=== PATIENT | female | born 1970 | race Caucasian/White ===

== ENCOUNTER → 2018-01-27 07:26 | Outpatient (CLI) | payer OTHER, SELFPAY ==
--- NOTE | 2018-01-27 06:58 | BI_ITS ---
MAMMOGRAPHY - BILATERAL SCREENING REASON FOR EXAM: Female, 47 years old. Routine annual screening examination. PERTINENT HISTORY: Aunt with breast cancer. TECHNIQUE: Digital bilateral breast ana (3D mammographic acquisition) in the CC and MLO projections. 2-D mediolateral oblique (MLO) and craniocaudad (CC) views of both breasts were obtained. CAD: Full Field Digital Mammography with Computer Added Detection was performed. COMPARISON: Comparison is made with prior study dated January 14, 2017 and January 09, 2016. FINDINGS: Breast Composition: The breasts are heterogeneously dense, which may obscure small masses. There are no dominant masses or suspicious calcifications. There is a 4 mm x 4.1 mm well-defined nodular density in the inferior anterior midportion of the breast at the 6:00 position. This may represent either a small cyst or small lymph node. Correlation with ultrasound is recommended. Stable benign-appearing bilateral axillary lymph nodes. No other significant abnormalities are identified. There has been no significant change since the prior study. BI/SCREENING MAMM (CAD), BILAT IMPRESSION: 4 mm x 4.1 mm well-defined nodule in the left breast as described. Correlation with ultrasound is recommended. ASSESSMENT CATEGORY: BIRADS Category 0: Incomplete. Need additional imaging evaluation. A letter regarding these results will be sent to the patient by the facility within 30 days. Approximately 10% of breast cancers are not detected by mammography. A normal mammogram should not delay biopsy of a clinically suspicious abnormality. [id number] Electronically Signed: Abhinav Herrera MD at 9:01 EDT Tel [phone], Service support ,
--- NOTE | 2018-01-31 12:25 | US_ITS ---
STUDY: ULTRASOUND BREAST - left REASON FOR EXAM: Female, 47 years old. Nodule TECHNIQUE: Axial and longitudinal images of the left breast were performed with a high resolution ultrasound transducer. COMPARISON: Mammogram from 01/27/2018 FINDINGS: Breast: Ultrasound evaluation of the left breast, in the area of concern, shows a 0.4 x 0.4 x 0.3 cm hypoechoic well-defined nodule corresponding with the abnormality on mammogram. There is no suspicious shadowing lesion, architectural distortion or clustered calcification. There are dilated retroareolar ducts. US/Breast Limited Unilateral IMPRESSION: No suspicious sonographic findings, nonshadowing 4 mm nodule noted in the area of concern. ASSESSMENT CATEGORY: BIRADS Category 2: Benign. A letter regarding these results will be sent to the patient by the facility within 30 days. Electronically Signed: Ej Pinedo MD at 11:35 EDT , Service support ,
== END ==
PROVIDERS: Family Provider Student in an Organized Health Care Education/Training Program; PCP Student in an Organized Health Care Education/Training Program; Visit Provider Obstetrics & Gynecology
DX: Z12.31 Encounter for screening mammogram for malignant neoplasm of breast (principal)
CPT/HCPCS: 77063; 77067

== ENCOUNTER → 2018-01-31 12:22 | Outpatient (CLI) | payer OTHER, SELFPAY | PROVIDERS: Family Provider Student in an Organized Health Care Education/Training Program; PCP Student in an Organized Health Care Education/Training Program; Visit Provider Obstetrics & Gynecology | DX: R92.2 Inconclusive mammogram (principal) | CPT/HCPCS: 76642 ==

== ENCOUNTER 2018-03-04 13:39 | Emergency (ER) | payer OTHER, SELFPAY ==
[2018-03-04 13:40] VITALS: BP 140/78; PULSE 66; RESP 16; TEMP 37.2; BMI 23.5
--- NOTE | 2018-03-04 14:05 | ED.VISSUMM ---
- ER Visit Summary Date of Service: 03/04/18 Chief Complaint: Right-sided headache with nausea and vomiting History of Present Illness: The patient is a 47 F history of prior headaches. She said she had was fitted for a mouth guard and it made her headaches better she has not had as many headaches recently. States when she gets on the right-sided behind her right eye. They are not thunderclap. She is on no blood thinners. She denies any sinus congestion. She denies any fever. She denies any head trauma. She denies any neurological symptoms. She is on no blood thinners. There is no family history of intracranial bleeds or brain aneurysms. No else at home currently is having headaches. She denies neck stiffness. Physical Examination: Well-appearing middle-age female. Vital signs are stable afebrile. She does not look septic or toxic. HEENT exam pupils round reactive light. Extra motions are intact. No frontal or maxillary sinus tenderness. Moist mucous membranes. No signs of trauma to her face or head. Neck nontender. No meningismus. Able to easily flex her chin and touch her chin to chest. No lymphadenopathy. Lungs good auscultation bilaterally. Heart regular rhythm no murmur. Chest wall nontender. Abdomen soft nontender. She is moving all 4 extremities. They are neurovascularly intact. Skin no rashes. Back exam normal. Neurologically she is awake alert with no focal motor or sensory deficits. NIH score of 0. Normal speech. No facial droop. 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 Bilateral dorsi plantar flexion. Fingertip to nose and heel to wilkes all within normal limits. She has a completely normal neurologic exam. Test Results: CT of the patient's brain shows no acute abnormality. Read by the radiologist as normal and reviewed by me. Emergency Department Course and Treatment: Likely this sounds to me to be migraine headaches. She has never been officially diagnosed with those. She will be treated with IV fluids, IV Toradol, IV Phenergan and Benadryl. Repeat exam of the patient at 1502 she is doing well. Headache is resolving. Neurologic exam is unchanged and remains normal. Treatment Plan: Discharged home. Prescription for Imitrex as needed. Disposition: Discharge Impression: Acute headache secondary to a migraine Nausea and vomiting This note was generated with [employer] software. It may contain incorrect words, spelling, and punctuation that were not noted in review of the chart prior to signing ED Disposition - Plan for ED Patient: Chief Complaint: Headache Referrals: Marcelino Steinberg DO [Primary Care Provider] -
--- NOTE | 2018-03-04 14:08 | ED.DCSUM_ITS ---
- ER Visit Summary Date of Service: 03/04/18 Chief Complaint: Right-sided headache with nausea and vomiting History of Present Illness: The patient is a 47 F history of prior headaches. She said she had was fitted for a mouth guard and it made her headaches better she has not had as many headaches recently. States when she gets on the right- sided behind her right eye. They are not thunderclap. She is on no blood thinners. She denies any sinus congestion. She denies any fever. She denies any head trauma. She denies any neurological symptoms. She is on no blood thinners. There is no family history of intracranial bleeds or brain aneurysms. No else at home currently is having headaches. She denies neck stiffness. Physical Examination: Well-appearing middle-age female. Vital signs are stable afebrile. She does not look septic or toxic. HEENT exam pupils round reactive light. Extra motions are intact. No frontal or maxillary sinus tenderness. Moist mucous membranes. No signs of trauma to her face or head. Neck nontender. No meningismus. Able to easily flex her chin and touch her chin to chest. No lymphadenopathy. Lungs good auscultation bilaterally. Heart regular rhythm no murmur. Chest wall nontender. Abdomen soft nontender. She is moving all 4 extremities. They are neurovascularly intact. Skin no rashes. Back exam normal. Neurologically she is awake alert with no focal motor or sensory deficits. NIH score of 0. Normal speech. No facial droop. Bilateral 5 out of 5 patient care assistant strength. Bilateral dorsi plantar flexion. Fingertip to nose and heel to wilkes all within normal limits. She has a completely normal neurologic exam. Test Results: CT of the patient's brain shows no acute abnormality. Read by the radiologist as normal and reviewed by me. Emergency Department Course and Treatment: Likely this sounds to me to be migraine headaches. She has never been officially diagnosed with those. She will be treated with IV fluids, IV Toradol, IV Phenergan and Benadryl. Repeat exam of the patient at 1502 she is doing well. Headache is resolving. Neurologic exam is unchanged and remains normal. Treatment Plan: Discharged home. Prescription for Imitrex as needed. Disposition: Discharge Impression: Acute headache secondary to a migraine Nausea and vomiting This note was generated with [employer] software. It may contain incorrect words, spelling, and punctuation that were not noted in review of the chart prior to signing ED Disposition - Plan for ED Patient: Chief Complaint: Headache Referrals: Marcelino Steinberg DO [Primary Care Provider] -
[2018-03-04] MEDS: 0.9% Normal Saline 1,000 ML 1000 ML IV (14:15)
[2018-03-04] MEDS: Ketorolac 30 MG/ML Syringe IV (14:15)
[2018-03-04] MEDS: proMETHazine 25 MG/ML Syringe 12.5 MG IV (14:15)
[2018-03-04] MEDS: DiphenhydrAMINE 50 MG/ML Syringe IV (14:15)
--- NOTE | 2018-03-04 15:04 | ED.DEP ---
ED Disposition - Plan for ED Patient: Disposition: Home or Assisted Living Chief Complaint: Headache Instructions: ED Headache Migraine Prescriptions: Sumatriptan Succinate [Imitrex] 25 mg PO .X1 PRN #10 tab Referrals: Marcelino Steinberg DO [Primary Care Provider] - As Needed Additional Instructions: Follow-up with her doctor as needed. Your headaches are consistent clinically with migraine headaches. I wrote a prescription for a medication called Imitrex try that the next time you have a similar headache.
[2018-03-04 15:36] VITALS: BP 114/71; PULSE 87; RESP 14; O2SAT 100
== END 2018-03-04 15:37 | disposition home or self-care (01) ==
PROVIDERS: Emergency Provider Emergency Medicine; Family Provider Student in an Organized Health Care Education/Training Program; PCP Student in an Organized Health Care Education/Training Program
DX: G43.909 Migraine, unspecified, not intractable, without status migrainosus (principal)
CPT/HCPCS: 70450; 96361; 96374; 96375; 99283; J7030; A4216

== ENCOUNTER → 2019-02-09 12:38 | Outpatient (CLI) | payer OTHER, SELFPAY ==
--- NOTE | 2019-02-09 12:42 | BI_ITS ---
MAMMOGRAPHY - BILATERAL SCREENING REASON FOR EXAM: Female, 48 years old. Routine annual screening examination. PERTINENT HISTORY: Aunt with breast cancer. TECHNIQUE: Digital bilateral breast alber (3D mammographic acquisition) in the CC and MLO projections. 2-D mediolateral oblique (MLO) and craniocaudad (CC) views of both breasts were obtained. CAD: Full Field Digital Mammography with Computer Added Detection was performed. COMPARISON: Comparison is made with prior study dated January 27, 2018 and January 14, 2017. FINDINGS: Breast Composition: The breasts are heterogeneously dense, which may obscure small masses. There is a 2.1 cm x 1.5 cm well-defined nodule in the lateral retroareolar region of the right breast. There is also evidence of a 8.4 mm well-defined nodule in the superior lateral portion of the right breast. Correlation with ultrasound is recommended. No other significant abnormalities are identified. BI/SCREEN MAMM (CAD) W/ALBER BILAT IMPRESSION: 2 nodular densities seen in the right breast as described. Correlation with ultrasound is recommended. ASSESSMENT CATEGORY: BIRADS Category 0: Incomplete. Need additional imaging evaluation. A letter regarding these results will be sent to the patient by the facility within 30 days. Approximately 10% of breast cancers are not detected by mammography. A normal mammogram should not delay biopsy of a clinically suspicious abnormality. [id number] Electronically Signed: Abhinav Herrera, at 14:18 EDT , Service support ,
== END ==
PROVIDERS: Family Provider Student in an Organized Health Care Education/Training Program; PCP Student in an Organized Health Care Education/Training Program; Referring Provider Obstetrics & Gynecology; Visit Provider Obstetrics & Gynecology
DX: Z12.31 Encounter for screening mammogram for malignant neoplasm of breast (principal); Z80.3 Family history of malignant neoplasm of breast
CPT/HCPCS: 77063; 77067

== ENCOUNTER → 2019-02-27 12:53 | Outpatient (CLI) | payer OTHER, SELFPAY ==
--- NOTE | 2019-02-27 12:58 | US_ITS ---
STUDY: ULTRASOUND BREAST - RIGHT REASON FOR EXAM: Female, 48 years old. Persistent mammographic densities TECHNIQUE: Axial and longitudinal images of the RIGHT breast were performed with a high resolution ultrasound transducer. COMPARISON: 02/09/2019. FINDINGS: RIGHT Breast: Sonogram of the right breast along upper outer quadrant demonstrates multiple foci of cysts, and the largest focus is visualized along the 9:00 axis, 4 cm from nipple measuring 1.3 x 1.9 x 0.9 cm with anechoic echotexture. The second largest is along 12:00 axis, 3 cm from nipple measuring 0.7 x 0.7 x 0.6 cm. These correspond to the densities visualized on the mammogram. US/Breast Limited Unilateral IMPRESSION: 2 nodular densities on the mammogram corresponds to 2 benign cysts as described above. ASSESSMENT CATEGORY: BIRADS Category 2: Benign. A letter regarding these results will be sent to the patient by the facility within 30 days. Patient to return to annual screening mammogram in February 2020. Electronically Signed: Sedrick East MD at 8:30 EDT Tel [phone], Service support ,
== END ==
PROVIDERS: Family Provider Student in an Organized Health Care Education/Training Program; PCP Student in an Organized Health Care Education/Training Program; Referring Provider Obstetrics & Gynecology; Visit Provider Obstetrics & Gynecology
DX: R92.2 Inconclusive mammogram (principal)
CPT/HCPCS: 76642

== ENCOUNTER → 2020-04-23 07:32 | Outpatient (CLI) | payer OTHER, SELFPAY ==
--- NOTE | 2020-04-23 07:35 | BI_ITS ---
MAMMOGRAPHY - BILATERAL SCREENING REASON FOR EXAM: Female, 49 years old. Routine annual screening examination. PERTINENT HISTORY: Aunt with breast cancer. TECHNIQUE: Digital bilateral breast alber (3D mammographic acquisition) in the CC and MLO projections. 2-D mediolateral oblique (MLO) and craniocaudad (CC) views of both breasts were obtained. CAD: Full Field Digital Mammography with Computer Added Detection was performed. COMPARISON: Comparison is made with prior examination dated 02/09/2019 and 01/27/2018. FINDINGS: Breast Composition: The breasts are heterogeneously dense, which may obscure small masses. There is a 2.4 cm x 1.4 cm well-defined nodule in the lateral retroareolar region of the right breast. This has increased slightly in size as compared to prior study. Prior sonogram demonstrated these to be cysts. The previously seen 7 mm nodule is not seen at this time in the upper lateral portion of the right breast. Stable benign-appearing bilateral axillary lymph nodes. No other significant abnormalities are identified. BI/SCREEN MAMM (CAD) W/ALBER BILAT IMPRESSION: Mild increased size of the retroareolar nodule in the right breast as described. This was previously demonstrated to be a cyst. Yearly follow-up mammogram recommended. (A) ASSESSMENT CATEGORY: BIRADS Category 2: Benign. A letter regarding these results will be sent to the patient by the facility within 30 days. Approximately 10% of breast cancers are not detected by mammography. A normal mammogram should not delay biopsy of a clinically suspicious abnormality. [id number] Electronically Signed: Abhinav Herrera, at 10:07 EDT , Service support ,
== END ==
PROVIDERS: PCP Student in an Organized Health Care Education/Training Program; Referring Provider Student in an Organized Health Care Education/Training Program; Visit Provider Student in an Organized Health Care Education/Training Program
DX: Z12.31 Encounter for screening mammogram for malignant neoplasm of breast (principal); Z80.3 Family history of malignant neoplasm of breast
CPT/HCPCS: 77063; 77067

== ENCOUNTER → 2021-04-24 09:52 | Outpatient (CLI) | payer OTHER, SELFPAY ==
--- NOTE | 2021-04-24 09:59 | BI_ITS ---
MAMMOGRAPHY - BILATERAL SCREENING REASON FOR EXAM: Female, 50 years old. Routine annual screening examination. PERTINENT HISTORY: Aunt with breast cancer. TECHNIQUE: Digital bilateral breast alber (3D mammographic acquisition) in the CC and MLO projections. 2-D mediolateral oblique (MLO) and craniocaudad (CC) views of both breasts were obtained. CAD: Full Field Digital Mammography with Computer Added Detection was performed. COMPARISON: Comparison is made with prior examination dated 04/23/2020 and 02/09/2019. FINDINGS: Breast Composition: The breasts are heterogeneously dense, which may obscure small masses. There are 3 adjacent nodular densities in the anterior central upper lateral aspect of the right breast suggestive of a cysts. There is also evidence of a 1.5 cm x 1.5 cm well-defined nodule in the central lateral aspect of the left breast. These most likely represent cysts. Correlation with ultrasound of both breasts is recommended for further evaluation. No other significant abnormalities are identified. BI/SCRN MAMM (CAD)W/ALBER BILAT IMPRESSION: Increase in size and number of the bilateral breast nodules as described. Follow-up with ultrasound is recommended. ASSESSMENT CATEGORY: BIRADS Category 0: Incomplete. Need additional imaging evaluation. A letter regarding these results will be sent to the patient by the facility within 30 days. Approximately 10% of breast cancers are not detected by mammography. A normal mammogram should not delay biopsy of a clinically suspicious abnormality. [id number] Electronically Signed: Abhinav Herrera MD at 11:04 EDT , Service support ,
== END ==
PROVIDERS: PCP Student in an Organized Health Care Education/Training Program; Referring Provider Student in an Organized Health Care Education/Training Program; Visit Provider Student in an Organized Health Care Education/Training Program
DX: Z12.31 Encounter for screening mammogram for malignant neoplasm of breast (principal)
CPT/HCPCS: 77063; 77067

== ENCOUNTER → 2021-05-06 13:26 | Outpatient (CLI) | payer OTHER, SELFPAY ==
--- NOTE | 2021-05-06 13:28 | US_ITS ---
STUDY: ULTRASOUND BREAST - RIGHT (accession [id number]), LEFT (accession [id number]) REASON FOR EXAM: Female, 50 years old. Abnormal screening mammogram. TECHNIQUE: Axial and longitudinal images of the RIGHT (accession [id number]), LEFT (accession [id number]) breast were performed with a high resolution ultrasound transducer. # OF IMAGES: 38 COMPARISON: Comparison is made with prior mammogram dated 04/24/2021 and prior ultrasound of the right breast dated 02/27/2019. FINDINGS: Left (accession [id number]), LEFT (accession [id number]) Breast: The retroareolar region of the left breast was examined by ultrasound. 2. Cysts in the retroareolar region. The larger measures 1.6 x 1.7 cm x 0.8 cm. IMPRESSION: 2 cysts are seen in the retroareolar region of the left breast. ASSESSMENT CATEGORY: BIRADS Category 2: Benign. A letter regarding these results will be sent to the patient by the facility within 30 days. Electronically Signed: Abhinav Herrera MD at 14:56 EDT , Service support , STUDY: ULTRASOUND BREAST - RIGHT (accession [id number]), LEFT (accession [id number]) REASON FOR EXAM: Female, 50 years old. Abnormal screening mammogram. TECHNIQUE: Axial and longitudinal images of the RIGHT (accession [id number]), LEFT (accession [id number]) breast were performed with a high resolution ultrasound transducer. # OF IMAGES: 38 COMPARISON: Comparison is made with prior mammogram dated 04/24/2021 and prior ultrasound of the right breast dated 02/27/2019. FINDINGS: Left (accession [id number]), LEFT (accession [id number]) Breast: The retroareolar region of the left breast was examined by ultrasound. 2. Cysts in the retroareolar region. The larger measures 1.6 x 1.7 cm x 0.8 cm. US/Breast Limited Unilateral
== END ==
PROVIDERS: PCP Student in an Organized Health Care Education/Training Program; Referring Provider Student in an Organized Health Care Education/Training Program; Visit Provider Student in an Organized Health Care Education/Training Program
DX: R92.2 Inconclusive mammogram (principal); N63.42 Unspecified lump in left breast, subareolar
CPT/HCPCS: 76642

== ENCOUNTER → 2022-04-27 | Outpatient (CLI) | payer BC, SELFPAY ==
--- NOTE | 2022-04-27 08:07 | BI_ITS ---
MAMMOGRAPHY - BILATERAL SCREENING REASON FOR EXAM: Female, 51 years old. Routine annual screening examination. PERTINENT HISTORY: Aunt with breast cancer. History of prior bilateral breast cysts. TECHNIQUE: Digital bilateral breast alber (3D mammographic acquisition) in the CC and MLO projections. 2-D mediolateral oblique (MLO) and craniocaudad (CC) views of both breasts were obtained. CAD: Full Field Digital Mammography with Computer Added Detection was performed. COMPARISON: Comparison is made with prior study dated 04/24/2021 and 04/23/2020. FINDINGS: Breast Composition: The breasts are heterogeneously dense, which may obscure small masses. The previously seen nodules in the right breast of decreased in size. The largest nodule presently measures 1.5 cm x 1.3 cm. Stable 1.5 cm well-defined nodule in the central lateral aspect of the left breast. No other significant abnormalities are identified. BI/SCRN MAMM (CAD)W/ALBER BILAT IMPRESSION: Interval decrease in size of the well-defined left breast nodules. Yearly follow-up mammogram recommended. (A) ASSESSMENT CATEGORY: BIRADS Category 2: Benign. A letter regarding these results will be sent to the patient by the facility within 30 days. Approximately 10% of breast cancers are not detected by mammography. A normal mammogram should not delay biopsy of a clinically suspicious abnormality. [id number] Electronically Signed: Abhinav Herrera MD at 9:26 EDT ,
== END | disposition home or self-care (01) ==
LOC: OPBI 08:05
PROVIDERS: PCP Student in an Organized Health Care Education/Training Program; Visit Provider Student in an Organized Health Care Education/Training Program
DX: Z12.31 Encounter for screening mammogram for malignant neoplasm of breast (principal); Z80.3 Family history of malignant neoplasm of breast
CPT/HCPCS: 77063; 77067

== ENCOUNTER → 2023-04-28 | Outpatient (CLI) | payer BC, SELFPAY ==
--- NOTE | 2023-04-28 12:58 | BI_ITS ---
MAMMOGRAPHY - BILATERAL SCREENING REASON FOR EXAM: Female, 52 years old. Routine annual screening examination. PERTINENT HISTORY: Aunt with breast cancer. TECHNIQUE: Digital bilateral breast alber (3D mammographic acquisition) in the CC and MLO projections. 2-D mediolateral oblique (MLO) and craniocaudad (CC) views of both breasts were obtained. CAD: Full Field Digital Mammography with Computer Added Detection was performed. COMPARISON: Comparison is made with prior study April 27, 2022 and April 24, 2021. FINDINGS: Breast Composition: The breasts are heterogeneously dense, which may obscure small masses. Bilateral well-defined nodules are seen. The largest nodule in the left breast measures 2.5 size by 2.1 cm. This is located in the central slightly lateral aspect of the breast. This has increased in size as compared to prior study. No other significant abnormalities are identified. BI/SCRN MAMM (CAD)W/ALBER BILAT IMPRESSION: Bilateral well-defined nodules more prominent in the right breast. Correlation with ultrasound is recommended for further evaluation. ASSESSMENT CATEGORY: BIRADS Category 0: Incomplete. Need additional imaging evaluation. A letter regarding these results will be sent to the patient by the facility within 30 days. Approximately 10% of breast cancers are not detected by mammography. A normal mammogram should not delay biopsy of a clinically suspicious abnormality. [id number] Electronically Signed: Abhinav Herrera MD at 14:25 EDT ,
== END | disposition home or self-care (01) ==
PROVIDERS: PCP Student in an Organized Health Care Education/Training Program; Referring Provider Student in an Organized Health Care Education/Training Program
DX: Z12.31 Encounter for screening mammogram for malignant neoplasm of breast (principal); Z80.3 Family history of malignant neoplasm of breast
CPT/HCPCS: 77063; 77067

== ENCOUNTER → 2023-05-06 | Outpatient (CLI) | payer BC, SELFPAY ==
--- NOTE | 2023-05-06 08:33 | US_ITS ---
STUDY: ULTRASOUND BREAST - BILATERAL REASON FOR EXAM: Female, 52 years old. Abnormal screening mammogram. TECHNIQUE: Axial and longitudinal images of the BILATERAL breast were performed with a high resolution ultrasound transducer. # OF IMAGES: 124 COMPARISON: Comparison is made with prior mammogram dated April 28, 2023. FINDINGS: BILATERAL Breast: The entire right breast was examined with ultrasound. Once again, there are multiple bilateral cysts. The largest cyst is at the 12:00 position breast ultrasound from nipple. This measures 1.5 cm x 1 cm by 1.5 cm. The entire left breast was examined with ultrasound. Once again, multiple cysts are seen. The largest cyst in the left breast is at the 3:00 position of the breast at 2 cm from the nipple. The cyst measures 2.3 cm x 2.6 cm x 1.1 cm. US/Breast Complete Bilateral IMPRESSION: Multiple bilateral cysts as described. ASSESSMENT CATEGORY: BIRADS Category 2: Benign. A letter regarding these results will be sent to the patient by the facility within 30 days. Electronically Signed: Abhinav Herrera MD at 15:00 EDT ,
== END | disposition home or self-care (01) ==
PROVIDERS: PCP Student in an Organized Health Care Education/Training Program; Referring Provider Student in an Organized Health Care Education/Training Program; Visit Provider Student in an Organized Health Care Education/Training Program
DX: R92.8 Other abnormal and inconclusive findings on diagnostic imaging of breast (principal)
CPT/HCPCS: 76641

== ENCOUNTER → 2025-03-20 | Outpatient (CLI) | payer BC, SELFPAY ==
--- NOTE | 2025-03-20 14:25 | BI_ITS ---
EXAM: SCRN MAMM (CAD)W/ALBER BILAT DATE: 03/20/2025 CLINICAL HISTORY: F, Age 54 y/o , SCREENING Maternal aunt. History of prior bilateral ultrasounds demonstrating cysts. TECHNIQUE: Procedure Code: [id number] Modality: MG Procedure: SCRN MAMM (CAD)W/ALBER BILAT COMPARISON: Prior exam(s) dated March 30, 2024.. FINDINGS: TISSUE DENSITY: The breasts are heterogeneously dense, which may obscure small masses. Bilateral Breast Mammographic Findings: There is a 3 cm x 2.5 cm well-defined nodule in the central lateral aspect of the left breast. A nodule measuring 1 cm seen adjacent to this. There is also evidence of a 1 cm well-defined nodule in the central upper lateral aspect of the right breast. Correlation with ultrasound recommended. Stable bilateral fat containing axillary lymph nodes. BI/SCRN MAMM (CAD)W/ALBER BILAT IMPRESSION: Bilateral breast nodules as described. OVERALL FINAL ASSESSMENT BI-RADS 0: INCOMPLETE - NEED ADDITIONAL IMAGING EVALUATION. RECOMMENDATION: Ultrasound Recommended A letter with findings and recommendations will be mailed to the patient. Reading Location: [id number]
== END | disposition home or self-care (01) ==
LOC: OPBI 14:23
PROVIDERS: PCP Student in an Organized Health Care Education/Training Program; Referring Provider Student in an Organized Health Care Education/Training Program; Visit Provider Student in an Organized Health Care Education/Training Program
DX: Z12.31 Encounter for screening mammogram for malignant neoplasm of breast (principal)
CPT/HCPCS: 77063; 77067

== ENCOUNTER → 2025-04-04 | Outpatient (CLI) | payer BC, SELFPAY ==
--- NOTE | 2025-04-04 12:30 | US_ITS ---
PROCEDURE: BREAST LIMITED UNILATERAL 04/04/2025 REASON FOR EXAM: F, Age 54 y/o , ABN MAMM COMPARISON: Mammogram 03/20/2025, 03/30/2024. TECHNIQUE: Procedure Code: USBRSTLIMIT Modality: US Procedure: BREAST LIMITED UNILATERAL FINDINGS: ULTRASOUND: Left breast: Follow-up examination performed for the left breast masses seen on examination of 03/20/2025. Ultrasound performed of the upper-outer left breast demonstrates a cyst cluster at 1 o'clock 1 cm from the nipple measuring 3.1 x 2.7 x 1.2 cm. In the adjacent breast tissues there is another smaller cyst measuring 1.0 x 0.9 x 1.0 cm. These correlates with the mammographic findings. Right breast: Follow-up examination performed for the right breast mass seen on examination of 03/20/2025. Ultrasound performed of the superior right breast demonstrates a few small cysts, the largest is at 12 o'clock 1 cm from the nipple measuring 1.2 x 1.2 x 0.9 cm. There is another cyst at 12 o'clock 2 cm from the nipple measuring 0.6 x 0.6 x 0.5 cm. One of these is the likely correlate for the mammographic finding. US/Breast Limited Unilateral IMPRESSION: Benign bilateral cysts and cyst clusters. BI-RADS 2: BENIGN RECOMMENDATION: Routine annual follow-up in 1 Year Reading Location: [id number]
== END | disposition home or self-care (01) ==
PROVIDERS: PCP Student in an Organized Health Care Education/Training Program; Referring Provider Student in an Organized Health Care Education/Training Program; Visit Provider Student in an Organized Health Care Education/Training Program
DX: R92.8 Other abnormal and inconclusive findings on diagnostic imaging of breast (principal)
CPT/HCPCS: 76642